=== PATIENT | male | born 1965 | race Caucasian/White ===

== ENCOUNTER 2022-03-01 12:05 | Emergency (ER) | payer BC, SELFPAY ==
[2022-03-01 12:15] VITALS: BP 146/83; PULSE 75; RESP 16; TEMP 36.8; O2SAT 98; BMI 27.2
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
== END 2022-03-01 14:37 | disposition home or self-care (01) ==
PROVIDERS: Emergency Provider Emergency Medicine
DX: Z04.1 Encounter for examination and observation following transport accident (principal); M54.2 Cervicalgia; M25.511 Pain in right shoulder; V86.99XA Unspecified occupant of other special all-terrain or other off-road motor vehicle injured in nontraffic accident, initial encounter
CPT/HCPCS: 70450; 72070; 72125; 99284